=== PATIENT | male | born 1965 | race Caucasian/White ===

== ENCOUNTER 2023-10-05 02:14 | Day surgery (SDC) | payer BC, SELFPAY ==
[2023-09-19 12:01] VITALS: BMI 28.8
[2023-10-05 07:42] VITALS: BP 128/69; PULSE 61; RESP 16; TEMP 36; O2SAT 98
[2023-10-05] MEDS: LACTATED RINGERS 1,000 ML 150 ML IV CONT (07:51)
--- NOTE | 2023-10-05 08:22 | WPDANESEPPF ---
Anes - Initial Pre Proc Eval Procedure: Operation Date: 10/05/23 09:00 Proposed Procedures p Colonoscopy - Vinny Grant MD Date/Time: 10/05/23 08:22 Surgeon: Vinny Grant MD Pre Op Diagnosis: hx colon polyps Patient Data Age: 57 Gender: M Height: 1.78 m Weight: 89.7 kg Last Vital Signs Temp 96.8 F L 10/05/23 07:42 Pulse 61 10/05/23 07:42 Resp 16 10/05/23 07:42 BP 128/69 10/05/23 07:42 Pulse Ox 98 10/05/23 07:42 O2 Del Method Room Air 10/05/23 07:42 Allergies Allergy/AdvReac Type Severity Reaction Status Date / Time rosuvastatin [From Crestor] AdvReac unable to Verified 10/05/23 07:41 tolerate side effects Home Medications Medication Instructions Recorded Confirmed Type ezetimibe 10 mg tablet 10 mg PO DAILY #90 tabs 02/13/23 09/19/23 Rx petsdhyc-fptzqfzx-xnsky acid 400 1 tablet PO DAILY 07/24/23 10/05/23 History mcg-vit K 20 mcg-lycop 300 mcg tablet (One-A-Day Men's Multivitamin) atorvastatin 80 mg tablet 80 mg PO DAILY #90 tabs 07/27/23 09/19/23 Rx Patient hx anesthesia problems: none Family hx anesthesia problems: none Results Review: All pre-operative results and documents have been reviewed as part of the pre-operative evaluation. [facility] Family History Family History Mother Diabetes mellitus Father Malignant neoplasm of prostate Social History Social History (Updated 07/24/23 @ 15:36 by Ariane Araiza MA) Smoking status: Never smoker Alcohol intake: current Drinks per week: 1 Substance use: never Substance use type: does not use Do You Feel Safe in your Home?: Yes Lack of Transportation: No Lack of Food: Never True Current Housing: I Have Housing Concerned About Future Housing: No Difficulty Paying Gas/Electric Bills: No Difficulty Paying for Meds: No Currently Unemployed: No Education: Bachelor's Degree Difficulty w/ Childcare or Family Care: No Living arrangements: with family Spiritual care concerns: No Anes - Eval Final PreProcedure Day of Procedure 10/05/23 08:22 Patient weight: normal Heart: regular rate and rhythm Lungs: clear to auscultation Airway: Mallampati scale class II Neurological: alert and oriented Last oral intake: >/= 8 hours ASA classification: II Emergent: no Anesthetic plan: proceed Anesthesia type and monitoring: general GIVS and standard monitoring Results Review: All pre-operative results and documents have been reviewed as part of the pre-operative evaluation. Informed Consent: The patient's anesthetic plan and its attendant risks and benefits were discussed with the patient/family/POA. Questions were solicited and answers provided to the satisfaction of the patient/family/POA.
--- NOTE | 2023-10-05 08:56 | PM.HPGS ---
History of Present Illness History of Present Illness Consent: Risks, benefits, and alternatives have been discussed and questions answered. Patient agrees to proceed with procedure. Chief complaint: hx colon polyps Narrative: Hubert Ortiz is a 57 year old male with colon polyp 5 years ago Review of Systems Review of Systems: All systems reviewed & are unremarkable except as noted in HPI and below PMFSH Family History Family History Mother Diabetes mellitus Father Malignant neoplasm of prostate Social History Social History (Updated 07/24/23 @ 15:36 by Ariane Araiza MA) Smoking status: Never smoker Alcohol intake: current Drinks per week: 1 Substance use: never Substance use type: does not use Do You Feel Safe in your Home?: Yes Lack of Transportation: No Lack of Food: Never True Current Housing: I Have Housing Concerned About Future Housing: No Difficulty Paying Gas/Electric Bills: No Difficulty Paying for Meds: No Currently Unemployed: No Education: Bachelor's Degree Difficulty w/ Childcare or Family Care: No Living arrangements: with family Spiritual care concerns: No Meds Home Medications and Allergies Home Medications Medication Instructions Recorded Confirmed Type ezetimibe 10 mg tablet 10 mg PO DAILY #90 tabs 02/13/23 09/19/23 Rx alrpgjua-zidaetly-zoehy acid 400 1 tablet PO DAILY 07/24/23 10/05/23 History mcg-vit K 20 mcg-lycop 300 mcg tablet (One-A-Day Men's Multivitamin) atorvastatin 80 mg tablet 80 mg PO DAILY #90 tabs 07/27/23 09/19/23 Rx Allergies Allergy/AdvReac Type Severity Reaction Status Date / Time rosuvastatin [From Crestor] AdvReac unable to Verified 10/05/23 07:41 tolerate side effects Vital Signs Vital Signs - 24 hr 10/05/23 07:42 Temperature 96.8 F L Pulse Rate 61 Respiratory Rate 16 Blood Pressure 128/69 Pulse Oximetry 98 Oxygen Delivery Room Air Exam Const: General: comfortable and no acute distress HENMT: Face/Nose/Sinus: Normal nares present Eyes: General: appearance normal, both eyes and all related structures Neck: Neck: no JVD Resp: Auscultation: clear to auscultation bilaterally Cardio: Rate: regular rate Rhythm: regular rhythm GI: Inspection: non-distended GI Palp: Yes Soft to palpation Skin: General skin exam: normal color Neuro: General: gait normal Speech: normal speech Extrem: General: normal to inspection Psych: Mental Status: mental status grossly normal Assessment and Plan Assessment and plan (1) Colon polyps: Qualifiers: Colon polyp type: unspecified Colon location: unspecified part of colon Qualified Code(s): K63.5 - Polyp of colon Code(s): K63.5 - Polyp of colon Status: Acute Assessment and Plan: colonoscopy
[2023-10-05 09:14] VITALS: BP 140/74; PULSE 53; RESP 18; O2SAT 98
[2023-10-05 09:24] VITALS: BP 109/63; PULSE 54; RESP 18; O2SAT 98
[2023-10-05 09:34] VITALS: BP 125/77; PULSE 66; RESP 18; O2SAT 97
== END 2023-10-05 09:47 | disposition home or self-care (01) ==
PROVIDERS: PCP Family Medicine; Visit Provider Internal Medicine Gastroenterology
PROC: 0DJD8ZZ Inspection of Lower Intestinal Tract, Via Natural or Artificial Opening Endoscopic (ICD-10-PCS; CPT 45378; principal; 2023-10-05 09:00)
DX: Z12.11 Encounter for screening for malignant neoplasm of colon (principal); K62.1 Rectal polyp; K57.30 Diverticulosis of large intestine without perforation or abscess without bleeding; K64.8 Other hemorrhoids
CPT/HCPCS: 45385; 88305; J2704; J7120